=== PATIENT | female | born 1985 | race Caucasian/White ===

== ENCOUNTER 2019-04-23 12:39 | Outpatient (CLI) | payer OTHER, SELFPAY ==
--- NOTE | 2019-04-23 12:49 | MR_ITS ---
WS: [id number] MRI CERVICAL SPINE HISTORY: HEADACHE, ANESTHESIA OF SKIN COMPARISON: None available. Normal cervical alignment with no compression fracture or significant disc space narrowing. Mild disc space narrowing and desiccation at C4-5, C5-6 and C6-7. Signal within the cord is normal. Craniocervical junction, C1 and C2 relationship, odontoid process and soft tissues are normal. C2-C3: Normal. C3-C4: Normal. C4-C5: Mild osteophytic ridging. No significant stenosis. C5-C6: Shallow LEFT paracentral disc osteophyte. Osteophyte extends into the LEFT foramen. There is v venus minimal encroachment upon the central canal and foramen. Mild LEFT foraminal narrowing. C6-C7: Mild osteophytic ridging and facet arthropathy. Mild central and bilateral foraminal stenosis. C7-T1: Normal. Paraspinal soft tissue are normal. 1. No significant central or foraminal stenosis. 2. Mild central and bilateral foraminal stenosis at C6-7 due to mild osteophyte and disc disease. 3. Shallow LEFT paracentral disc osteophyte complex at C5-6. Mild LEFT foraminal narrowing at C5-6 d ue to osteophyte disease. MR/MR cervical spin wo con* [id number] IMPRESSION:
--- NOTE | 2019-04-23 12:50 | MR_ITS ---
WS: [id number] MRI RIGHT SHOULDER HISTORY: REDUCED MOBILITY COMPARISON: 02/22/2012 TECHNIQUE: Multiplanar sequences of the shoulder joint are submitted. No significant signal abnormalities are noted within the rotator cuff tendons. The supraspinatus myot endinous insertion is being deformed and inferiorly displaced by hypertrophic changes of the clavicle . There is an osteophyte extending inferiorly by 3 mm causing deformity of the supraspinatus. Small a mount of adjacent fluid. No fluid along the AC joint. No os acromion. There is no muscle atrophy or e naomie. The visualized labrum is normal. Biceps tendon is in normal position and caliber. Coracohumeral interval is also narrowed measuring 3.5 mm. Predominantly due to small hypertrophic ost eophyte from the medial humeral head. 1. No rotator cuff tear. 2. Mild clavicle osteophyte encroachment upon the myotendinous junction of the supraspinatus. 3. Mild, progressive narrowing of the coracohumeral interval now measuring 3.5 mm. MR/MR shoulder RT wo con* [id number] IMPRESSION:
== END 2019-04-23 12:40 | disposition home or self-care (01) ==
LOC: RADWPI 12:45
PROVIDERS: Family Provider Family Medicine; PCP Family Medicine; Referring Provider Family Medicine; Visit Provider Family Medicine
DX: M48.02 Spinal stenosis, cervical region (principal); M25.711 Osteophyte, right shoulder; M25.78 Osteophyte, vertebrae; M25.511 Pain in right shoulder; Z74.09 Other reduced mobility; R20.0 Anesthesia of skin
CPT/HCPCS: 72141; 73221

== ENCOUNTER → 2021-01-16 15:21 | Outpatient (BNVA) | payer BC, SELFPAY | PROVIDERS: Family Provider Family Medicine; PCP Family Medicine; Visit Provider Obstetrics & Gynecology | DX: R87.610 Atypical squamous cells of undetermined significance on cytologic smear of cervix (ASC-US) (principal); R87.810 Cervical high risk human papillomavirus (HPV) DNA test positive | CPT/HCPCS: 81025; 88305 ==

== ENCOUNTER 2025-01-28 11:33 | Outpatient (CLI) | payer OTHER, SELFPAY ==
--- NOTE | 2025-01-28 11:40 | MM_ITS ---
WS: [id number] BILATERAL SCREENING DIGITAL TOMOSYNTHESIS MAMMOGRAM WITH CAD HISTORY: SCREENING COMPARISON: None available. Bilateral CC and MLO views with tomosynthesis and synthetic mammography submitted. Computer aided detection analyzed. Breast composition: The breasts are heterogeneously dense, which may obscure small masses. No suspicious masses, microcalcifications or architectural distortion. MM/MM scr BI tomosynthesis [id number] IMPRESSION: BI-RADS: 1 - Negative FOLLOW UP: 1 Year Follow-up
== END 2025-01-28 11:34 | disposition home or self-care (01) ==
PROVIDERS: PCP Nurse Practitioner Family; Visit Provider Nurse Practitioner Family
DX: Z12.31 Encounter for screening mammogram for malignant neoplasm of breast (principal); R92.333 Mammographic heterogeneous density, bilateral breasts
CPT/HCPCS: 77063; 77067